=== PATIENT | female | born 1930 | race Caucasian/White ===

== ENCOUNTER → 2019-10-12 | Outpatient (CLI) | payer OTHER ==
[~2019-10-12] MED LIST: AMIODARONE HCL400 MG PO; ASA81BEC PO; CALCIUM500 M1 PO; COQ-10100 MG PO; FISH OIL 1,0001 EAC9 PO; GABAPENTIN100 MG PO; SENNA PLUS TAB1 EACH PO; ULTRAM 50MG TAB50 MG PO; XANAX 0.25 MG0.25 MG PO
== END ==
LOC: SJCVC 16:19
PROVIDERS: ATTEND Internal Medicine Cardiovascular Disease
DX: R94.31 Abnormal electrocardiogram [ECG] [EKG] (principal); I48.0 Paroxysmal atrial fibrillation; Z79.899 Other long term (current) drug therapy

== ENCOUNTER → 2019-10-12 | Outpatient (CLI) | payer OTHER | LOC: LAB 13:42 | PROVIDERS: ATTEND Internal Medicine Cardiovascular Disease | DX: Z01.818 Encounter for other preprocedural examination (principal); Z11.59 Encounter for screening for other viral diseases ==

== ENCOUNTER → 2019-10-14 | Outpatient (CLI) | payer OTHER ==
[~2019-10-14] VITALS: Ht 167.6 cm; Wt 82.1 kg
[2019-10-14 10:27] VITALS: BP 1501/73
[2019-10-14 10:35] LABS: HEMATOCRIT 36.5 % (37.0-47.0); HEMOGLOBIN 13.1 gm/dL (12.0-15.0); MCH 35.4 pg (26.0-34.0); MCHC 35.8 g/dL (28.0-37.0); MCV 98.8 fL (80.0-100.0); RBC 3.69 mil/uL (4.20-5.00); RDW 13.8 % (10.5-14.5); WBC 4.9 thou/uL (4.0-11.0)
[2019-10-14 10:42] LABS: CALCIUM 9.3 mg/dL (8.5-10.1); CREATININE 1.2 mg/dL (0.6-1.0); POTASSIUM 3.8 mmol/L (3.5-5.1)
[2019-10-14 10:48] LABS: ALBUMIN 3.3 g/dL (3.4-5.0); INR 1.1; PROTIME 10.9 Seconds (9.3-11.4); TOTAL BILIRUBIN 0.7 mg/dL (0.2-1.0); TOTAL PROTEIN 6.4 g/dL (6.4-8.2)
--- NOTE | 2019-10-22 13:17 | P ---
[facility] [place] [address] PROCEDURE REPORT Name: Room #: KAROL TEE Jayson.#: [id number] Admission: 10/14/19 Attend Phys: Josh Sousa MD Discharge: Date of : [birth year] Report #: [id number] THIS REPORT FOR: cc: Jude Mcdaniel James R. DO Couchonnal, Luis F. MD ~ CC: DINO Diaz DATE OF SERVICE: 10/14/2019 PREOPERATIVE DIAGNOSIS: Pacemaker elective replacement indicator. POSTOPERATIVE DIAGNOSIS: Pacemaker elective replacement indicator. HISTORY: The patient is an 89-year-old female with a history of pacemaker implantation for sick sinus syndrome here for pacemaker generator exchange. ANESTHESIA: The patient underwent MAC anesthesia with no anesthesia related complications. DESCRIPTION OF PROCEDURE: The patient underwent informed consent. We discussed the details of the procedure including the risks, which include but not limited to bleeding, infection and need for possible lead revisions. She understood these risks and is willing to proceed. The patient was brought to the EP laboratory in fasting and sedated state, prepped and draped in a sterile fashion, received IV antibiotics. I injected lidocaine at the prior right-sided incision. An incision was created. The chronic pocket was entered. The pacemaker was exchanged for the new device. I took care of some bleeding in the pocket. The pocket was irrigated with vancomycin and then the pocket was closed in 2 layers using 2-0 for the deep layer, 3-0 for the middle layer and surgical glue for the outer skin layer. The patient awoke neurologically and hemodynamically intact. No complications and no significant bleeding. The explanted pacemaker was a Medtronic model Adapta, serial #[id number], implanted on 12/05/2010. The new device is a Medtronic, model JUS MRI compatible, serial #[id number]. The atrial lead was a Medtronic model #4574, serial #[id number] with a P-wave of 2.1 millivolts, pacing impedance 476 ohms, pacing threshold 0.6 volts at 0.4 milliseconds. The RV lead was a Medtronic model #4074, 52 cm, serial #[id number] with R waves of 10.3 millivolts, pacing impedance of 595 ohms and a pacing threshold of 0.5 volts at 0.4 milliseconds. The device was programmed to the AAIR/DDDR 60-120 mode. Of note, these leads were originally implanted on 11/15/2002. CONCLUSIONS: [facility] [address] [place] [address] PROCEDURE REPORT Name: Room #: KAROL hTomas#: [id number] Admission: 10/14/19 Attend Phys: Josh Sousa MD Discharge: Date of : [birth year] Report #: [id number] 1. Successful pacemaker generator exchange. 2. Satisfactory atrial and ventricular pacing and sensing thresholds. <ELECTRONICALLY SIGNED> By: Josh Sousa MD 10/22/19 1317 1226 1451 Josh Sousa MD /nt
== END | disposition home or self-care (01) ==
LOC: CATH 09:33
PROVIDERS: ATTEND Internal Medicine Cardiovascular Disease
DX: Z45.010 Encounter for checking and testing of cardiac pacemaker pulse generator [battery] (principal); I49.5 Sick sinus syndrome; I10 Essential (primary) hypertension; E78.5 Hyperlipidemia, unspecified; M19.90 Unspecified osteoarthritis, unspecified site; K21.9 Gastro-esophageal reflux disease without esophagitis; Z85.820 Personal history of malignant melanoma of skin; Z98.890 Other specified postprocedural states; Z79.899 Other long term (current) drug therapy; Z79.82 Long term (current) use of aspirin
CPT/HCPCS: 70005